=== PATIENT | male | born 1975 | race Caucasian/White ===

== ENCOUNTER 2023-07-06 08:04 | Outpatient (CLI) | payer OTHER, SELFPAY | END 2023-07-06 08:05 | disposition home or self-care (01) | LOC: NFLDREF 07-07 09:21 | PROVIDERS: Visit Provider Family Medicine | DX: Z00.00 Encounter for general adult medical examination without abnormal findings (principal); Z76.89 Persons encountering health services in other specified circumstances | CPT/HCPCS: 80048; 80061 ==

== ENCOUNTER 2023-11-14 08:28 | Outpatient (CLI) | payer OTHER, SELFPAY | END 2023-11-14 08:29 | disposition home or self-care (01) | LOC: NFLDREF 11-16 06:51 | PROVIDERS: Visit Provider Family Medicine | DX: E78.00 Pure hypercholesterolemia, unspecified (principal) | CPT/HCPCS: 80061; 80076 ==